=== PATIENT | male | born 1985 | race African-American/Black ===

== ENCOUNTER 2021-10-19 06:57 | Emergency (ER) | payer OTHER ==
[2021-10-19] MEDS ORDERED: NA CHLORIDE 0.9% 1,000 ML ONE (07:41)
[2021-10-19] MEDS ORDERED: KETOROLAC 30 MG/ML INJ ONE (07:41)
[2021-10-19 07:56] LABS: Absolute Lymphocytes (CBC) 1.6 K/uL (0.7-4.9); Hematocrit 44.4 % (39.6-49.0); Lymphocytes % 26.6 % (15.3-44.8); MPV 8.5 fL (7.6-11.3); RBC Red Blood Cell Count 5.28 M/uL (4.33-5.43)
[2021-10-19 08:07] LABS: BUN Blood Urea Nitrogen 13 mg/dL (7-18); Bicarbonate 28 mmol/L (21-32); Glucose Level 114 mg/dL (74-106); Potassium 3.7 mmol/L (3.5-5.1); Sodium Level 139 mmol/L (136-145)
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
[2021-10-19 10:12] VITALS: TEMP 98.1
[2021-10-19 10:15] VITALS: BP 142/77
[2021-10-19 10:16] VITALS: O2SAT 100
== END 2021-10-19 10:05 | disposition home or self-care (01) ==
LOC: ER 06:57
DX: S00.81XA Abrasion of other part of head, initial encounter (principal); S80.212A Abrasion, left knee, initial encounter; M62.830 Muscle spasm of back; R51.9 Headache, unspecified; V49.49XA Driver injured in collision with other motor vehicles in traffic accident, initial encounter
CPT/HCPCS: 96361; 85025; 80048; 36415; 70450; 72125; 71260; 74177; 96374; 99284; Q9967; J7030